=== PATIENT | male | born 1960 | race Caucasian/White ===

== ENCOUNTER 2016-11-17 08:29 | Emergency (ER) | payer MEDICARE, MEDICAID ==
--- NOTE | 2016-12-07 15:42 | ER ---
ADMIT: 11/17/2016 RM/LOC: ER [facility] MR#: [id number] [address] [place] [address] Emergency Room Report SEX: M AGE: 56 : 1960 DATE: 11/17/2016 A 56-year-old gentleman, who resides in a [facility] was apparently trying to get out of bed when he misstepped and experienced a sudden pain in his left ankle. See T sheet for remainder of history and physical. X-rays revealed fibular fracture. The patient was placed in a boot with walking restrictions and instructed to follow up with Orthopedics yet this week. DIAGNOSIS: Ankle fracture. Babar Liu MD/ rubia JOB #: [id number] CC: Babar Liu MD, Attending Physician
== END 2016-11-17 09:43 | disposition home or self-care (01) ==
LOC: ER 08:29
DX: S82.432A Displaced oblique fracture of shaft of left fibula, initial encounter for closed fracture (principal); Z79.82 Long term (current) use of aspirin; Z79.899 Other long term (current) drug therapy; W06.XXXA Fall from bed, initial encounter; Y92.129 Unspecified place in nursing home as the place of occurrence of the external cause

== ENCOUNTER 2016-11-26 11:00 | Day surgery (SDC) | payer MEDICARE, MEDICAID ==
[~2016-11-26] VITALS: Ht 177.8 cm; Wt 127.0 kg
--- NOTE | 2016-12-01 13:44 | OR ---
ADMIT: 11/26/2016 RM/LOC: [facility] MR#: [id number] [address] [place] [address] Operative/Delivery Room Report SEX: M AGE: 56 : 1960 Corrected: 11/27/2016 0627 [facility] SURGERY DATE: 11/26/2016 SURGEON: Lotus Hernández MD PREOPERATIVE DIAGNOSIS: Left lateral malleolus fracture. POSTOPERATIVE DIAGNOSIS: Left lateral malleolus fracture. PROCEDURE: Open reduction, internal fixation, left lateral malleolus fracture. ANESTHESIA: General. SPECIFICATIONS CHECKER: BESSY Ray. TOURNIQUET TIME: 20 minutes. ESTIMATED BLOOD LOSS: 20 mL. COMPLICATIONS: None. DESCRIPTION OF PROCEDURE: This patient was brought to the operating room. After satisfactory level anesthesia was achieved, the left lower extremity was prepped and draped in the usual sterile fashion. Under tourniquet ischemia, lateral incision was made over the left ankle overlying the fibula. Dissection was carried through subcutaneous tissue using electrocautery. Bleeders were cauterized and the fracture exposed with subperiosteal dissection. The fracture was markedly displaced and I first reduced the fracture, held in reduction clamps, then contoured a 7 hole semitubular locking plate to the lateral malleolus and fixed it with 3 screws below the fracture site and 4 screws above AP and lateral as well as mortise view showed good position of the implant. Good reduction of the fracture. Therefore, the tourniquet was released. Hemostasis achieved using electrocautery and the wound closed with 2-0 Vicryl in subcutaneous tissue, interrupted 3-0 nylon in the skin. A sterile dressing was applied. The patient was placed in a posterior splint and transferred from the operative suite in stable condition. Lotus Hernández MD/ modl JOB #: [id number] CC: Lotus Hernández, Attending Physician Linda Mora, Family Physician Corrected: 11/27/2016 0627 njv
== END 2016-11-26 16:45 | disposition home or self-care (01) ==
LOC: SSS 11:00
PROC: 0QSK04Z Reposition Left Fibula with Internal Fixation Device, Open Approach (ICD-10-PCS; principal; 2016-11-26)
DX: S82.62XA Displaced fracture of lateral malleolus of left fibula, initial encounter for closed fracture (principal); W19.XXXA Unspecified fall, initial encounter; Z79.899 Other long term (current) drug therapy; Z86.73 Personal history of transient ischemic attack (TIA), and cerebral infarction without residual deficits